=== PATIENT | female | born 1995 | race American Indian/Alaskan Native ===

== ENCOUNTER 2021-11-10 10:46 | Emergency (ER) | payer OTHER ==
--- NOTE | 2021-11-10 14:16 | Ultrasound Report ---
ULTRASOUND OBSTETRIC REASON FOR EXAM: pelvic pain TECHNIQUE: Transabdominal and transvaginal ultrasound was performed to evaluate a first trimester pre gnancy. COMPARISON: None available. FINDINGS: FINDINGS: There is a single intrauterine gestational sac with mean sac diameter measuring 10.5 mm. Mean sac alberto meter corresponds to an ultrasound age of 5 weeks and 6 days. Yolk sac is present. No pole is i dentified at this time. No evidence of perigestational hemorrhage. MATERNAL FINDINGS: 2 fibroids are present within the uterine fundus. Uterus demonstrates otherwise unremarkable sonograp hic appearance. Right ovary measures 2.7 x 2.1 x 2.6 cm. There is a 1.4 cm dominant follicle. No significant cyst or mass. Normal color Doppler flow. 1.3 cm simple appearing cystic structure noted adjacent to the left ovary. Left ovary measures 1.9 x 1.0 x 1.4 cm. Cul-de-sac: There is no free fluid. IMPRESSION: Intrauterine of uncertain viability: intrauterine gestational sac with yolk sac without det ectable pole at this time. In a hemodynamically stable patient, recommend follow-up with pelvic ultrasound in 7-10 days. Signer Name: Will Green MD Signed: 11/10/2021 2:11 PM Workstation Name: [email or web address]
[2021-11-10 14:19] LABS: Bilirubin,Urine NEG (Negative); Blood,Urine NEG (Negative); Color,Urine Yellow (Yellow); Protein,Urine <15 mg/dL mg/dL (Negative); Urobilinogen,Urine < 2.0 mg/dL (<2.0)
[2021-11-10 14:27] LABS: Bacteria,Urine 1+ /HPF (Negative); Mucus,Urine FEW /HPF
[2021-11-10 15:26] LABS: Basophils % (Auto) 0.2 % (0.0-1.8); Eosinophils % (Auto) 0.3 % (0.0-4.3); Hematocrit 37.4 % (30.3-42.9); Hemoglobin 12.4 gm/dl (10.1-14.3); Lymphocytes # (Auto) 2.5 K/mm3 (1.2-5.4); Lymphocytes % (Auto) 32.6 % (13.4-35.0); Mean Corpuscular HGB Conc 33 % (30-34); Mean Corpuscular Volume 94 fl (79-97); Monocytes # (Auto) 0.5 K/mm3 (0.0-0.8); Monocytes % (Auto) 6.5 % (0.0-7.3); Platelet Count 219 K/mm3 (140-440); Red Blood Count 3.98 M/mm3 (3.65-5.03); Red Cell Distribution Width 12.7 % (13.2-15.2)
[2021-11-10 15:44] LABS: Blood Urea Nitrogen 6 mg/dL (7-17); Calcium 9.4 mg/dL (8.4-10.2); Hemolysis Index 7
[2021-11-10 15:46] LABS: BUN/Creatinine Ratio 12
--- NOTE | 2021-11-10 16:08 | Emergency Department Report ---
ED HPI - General Chief complaint: Urogenital-Female Stated complaint: 5WKS /ABD PAIN Time Seen by Provider: 11/10/21 13:16 Source: patient Mode of arrival: Ambulatory Limitations: No Limitations - History of Present Illness Initial comments: This is a 26-year-old female nontoxic, well nourished in appearance, no acute signs of distress presents to the ED with c/o of intermittent pelvic cramping x several days. Patient denies any vaginal bleeding. Patient denies any upper abdominal pain. Patient denies any vaginal discharge or foul odor. Patient denies any nausea, vomiting, chest pain, shortness of breathe, fever, chills, headache, stiff neck, numbness, tingling. Patient denies any urinary symptoms. Patient denies any allergies or PMH. Location: pelvis Radiation: none Severity: mild Severity scale (0 -10): 3 Quality: cramping Consistency: intermittent Improves with: none Worsens with: none Associated symptoms: denies other symptoms. denies: nausea/vomiting, vaginal bleeding, vaginal discharge, abdominal pain, dysuria, headache, vision changes, malaise, dysparuenia, rash, seizure, shortness of breath, syncope, weakness Vaginal bleeding: none :: Yes Number of weeks : 5 ED Review of Systems ROS: Stated complaint: 5WKS /ABD PAIN Other details as noted in HPI Comment: All other systems reviewed and negative Constitutional: denies: chills, fever Eyes: denies: eye pain, eye discharge, vision change ENT: denies: ear pain, throat pain Respiratory: denies: cough, shortness of breath, wheezing Cardiovascular: denies: chest pain, palpitations Endocrine: no symptoms reported Gastrointestinal: denies: abdominal pain, nausea, diarrhea Genitourinary: denies: urgency, dysuria, discharge Musculoskeletal: denies: back pain, joint swelling, arthralgia Skin: denies: rash, lesions Neurological: denies: headache, weakness, paresthesias Psychiatric: denies: anxiety, depression Hematological/Lymphatic: denies: easy bleeding, easy bruising ED Past Medical Hx - Past Medical History Previous Medical History?: No - Surgical History Past Surgical History?: No - Social History Smoking Status: Never Smoker ED Physical Exam - General Limitations: No Limitations General appearance: alert, in no apparent distress - Head Head exam: Present: atraumatic, normocephalic - Eye Eye exam: Present: normal appearance - Neck Neck exam: Present: normal inspection, full ROM. Absent: lymphadenopathy - Respiratory Respiratory exam: Present: normal lung sounds bilaterally. Absent: respiratory distress, wheezes, rales, rhonchi, stridor, chest wall tenderness, accessory muscle use, decreased breath sounds, prolonged expiratory - Cardiovascular Cardiovascular Exam: Present: regular rate, normal rhythm, normal heart sounds. Absent: bradycardia, tachycardia, irregular rhythm, systolic murmur, diastolic murmur, rubs, gallop - GI/Abdominal GI/Abdominal exam: Present: soft, normal bowel sounds. Absent: distended, tenderness, guarding, rebound, rigid, diminished bowel sounds - Extremities Exam Extremities exam: Present: full ROM - Back Exam Back exam: Present: normal inspection, full ROM. Absent: tenderness, CVA tenderness (R), CVA tenderness (L), muscle spasm, paraspinal tenderness, vertebral tenderness, rash noted - Neurological Exam Neurological exam: Present: alert, oriented X3, normal gait - Psychiatric Psychiatric exam: Present: normal affect, normal mood - Skin Skin exam: Present: warm, dry, intact, normal color. Absent: rash ED Course Vital Signs 11/10/21 11/10/21 10:59 17:33 Temperature 99.4 F 99 F Pulse Rate 103 H 96 H Respiratory 14 18 Rate Blood Pressure 122/81 Blood Pressure 120/88 [Right] O2 Sat by Pulse 99 100 Oximetry - Reevaluation(s) Reevaluation #1: 11/10/21 16:08 Patient is speaking in full sentences with no signs of distress noted. ED Medical Decision Making - Lab Data Result diagrams: 11/10/21 13:29 11/10/21 13:29 Lab Results 11/10/21 11/10/21 11/10/21 Range/Units 13:29 13:29 13:29 WBC 7.6 (4.5-11.0) K/mm3 RBC 3.98 (3.65-5.03) M/mm3 Hgb 12.4 (10.1-14.3) gm/dl Hct 37.4 (30.3-42.9) % MCV 94 (79-97) fl MCH 31 (28-32) pg MCHC 33 (30-34) % RDW 12.7 L (13.2-15.2) % Plt Count 219 (140-440) K/mm3 Lymph % (Auto) 32.6 (13.4-35.0) % [place] % (Auto) 6.5 (0.0-7.3) % Eos % (Auto) 0.3 (0.0-4.3) % Baso % (Auto) 0.2 (0.0-1.8) % Lymph # (Auto) 2.5 (1.2-5.4) K/mm3 [place] # (Auto) 0.5 (0.0-0.8) K/mm3 Eos # (Auto) 0.0 (0.0-0.4) K/mm3 Baso # (Auto) 0.0 (0.0-0.1) K/mm3 Seg Neutrophils % 60.4 (40.0-70.0) % Seg Neutrophils # 4.6 (1.8-7.7) K/mm3 Sodium 136 L (137-145) mmol/L Potassium 3.8 (3.6-5.0) mmol/L Chloride 103.6 (98-107) mmol/L Carbon Dioxide 21 L (22-30) mmol/L Anion Gap 15 mmol/L BUN 6 L (7-17) mg/dL Creatinine 0.5 L (0.6-1.2) mg/dL Estimated GFR > 60 ml/min BUN/Creatinine Ratio 12 % Glucose 81 (65-100) mg/dL Calcium 9.4 (8.4-10.2) mg/dL HCG, Qual (Negative) HCG, Quant (0-4) mIU/mL Urine Color Yellow (Yellow) Urine Turbidity Clear (Clear) Urine pH 7.0 (5.0-7.0) Ur Specific [place] 1.014 (1.003-1.030) Urine Protein <15 mg/dl (Negative) mg/dL Urine Glucose (UA) Neg (Negative) mg/dL Urine Ketones 80 (Negative) mg/dL Urine Blood Neg (Negative) Urine Nitrite Neg (Negative) Urine Bilirubin Neg (Negative) Urine Urobilinogen < 2.0 (<2.0) mg/dL Ur Leukocyte Esterase Tr (Negative) Urine WBC (Auto) 5.0 (0.0-6.0) /HPF Urine RBC (Auto) 6.0 (0.0-6.0) /HPF U Epithel Cells (Auto) 5.0 (0-13.0) /HPF Urine Bacteria (Auto) 1+ (Negative) /HPF Urine Mucus Few /HPF 11/10/21 11/10/21 Range/Units 13:29 13:29 WBC (4.5-11.0) K/mm3 RBC (3.65-5.03) M/mm3 Hgb (10.1-14.3) gm/dl Hct (30.3-42.9) % MCV (79-97) fl MCH (28-32) pg MCHC (30-34) % RDW (13.2-15.2) % Plt Count (140-440) K/mm3 Lymph % (Auto) (13.4-35.0) % [place] % (Auto) (0.0-7.3) % Eos % (Auto) (0.0-4.3) % Baso % (Auto) (0.0-1.8) % Lymph # (Auto) (1.2-5.4) K/mm3 [place] # (Auto) (0.0-0.8) K/mm3 Eos # (Auto) (0.0-0.4) K/mm3 Baso # (Auto) (0.0-0.1) K/mm3 Seg Neutrophils % (40.0-70.0) % Seg Neutrophils # (1.8-7.7) K/mm3 Sodium (137-145) mmol/L Potassium (3.6-5.0) mmol/L Chloride (98-107) mmol/L Carbon Dioxide (22-30) mmol/L Anion Gap mmol/L BUN (7-17) mg/dL Creatinine (0.6-1.2) mg/dL Estimated GFR ml/min BUN/Creatinine Ratio % Glucose (65-100) mg/dL Calcium (8.4-10.2) mg/dL HCG, Qual Positive (Negative) HCG, Quant 9704 H (0-4) mIU/mL Urine Color (Yellow) Urine Turbidity (Clear) Urine pH (5.0-7.0) Ur Specific [place] (1.003-1.030) Urine Protein (Negative) mg/dL Urine Glucose (UA) (Negative) mg/dL Urine Ketones (Negative) mg/dL Urine Blood (Negative) Urine Nitrite (Negative) Urine Bilirubin (Negative) Urine Urobilinogen (<2.0) mg/dL Ur Leukocyte Esterase (Negative) Urine WBC (Auto) (0.0-6.0) /HPF Urine RBC (Auto) (0.0-6.0) /HPF U Epithel Cells (Auto) (0-13.0) /HPF Urine Bacteria (Auto) (Negative) /HPF Urine Mucus /HPF - Radiology Data [facility] [address] [place] [address] Ultrasound Report Signed Patient: JIM COOPER MR#: [id number] : 1995 Acct:[id number] Age/Sex: 26 / F ADM Date: 11/10/21 Loc: ED Attending Dr: Ordering Physician: CHITO TONEY NP Date of Service: 11/10/21 Procedure(s): US OB <= 14 weeks fetus Accession Number(s): [id number] cc: CHITO TONEY NP ULTRASOUND OBSTETRIC REASON FOR EXAM: pelvic pain TECHNIQUE: Transabdominal and transvaginal ultrasound was performed to evaluate a first trimester . COMPARISON: None available. FINDINGS: FINDINGS: There is a single intrauterine gestational sac with mean sac diameter measuring 10.5 mm. Mean sac diameter corresponds to an ultrasound age of 5 weeks and 6 days. Yolk sac is present. No pole is identified at this time. No evidence of perigestational hemorrhage. MATERNAL FINDINGS: 2 fibroids are present within the uterine fundus. Uterus demonstrates otherwise unremarkable sonographic appearance. Right ovary measures 2.7 x 2.1 x 2.6 cm. There is a 1.4 cm dominant follicle. No significant cyst or mass. Normal color Doppler flow. 1.3 cm simple appearing cystic structure noted adjacent to the left ovary. Left ovary measures 1.9 x 1.0 x 1.4 cm. Cul-de-sac: There is no free fluid. IMPRESSION: Intrauterine of uncertain viability: intrauterine gestational sac with yolk sac without detectable pole at this time. In a hemodynamically stable patient, recommend follow-up with pelvic ultrasound in 7-10 days. Signer Name: Tanya Ngo MD Signed: 11/10/2021 2:11 PM Workstation Name: [id number] Transcribed By: YAKOV Dictated By: TANYA NGO MD Electronically Authenticated By: TANYA NGO MD Signed Date/Time: 11/10/211410 DD/ 05 TD/TT: [facility] [address] [place] [address] Ultrasound Report Signed Patient: JIM COOPER MR#: [id number] : 1995 Acct:[id number] Age/Sex: 26 / F ADM Date: 11/10/21 Loc: ED Attending Dr: Ordering Physician: CHITO TONEY NP Date of Service: 11/10/21 Procedure(s): US OB transvaginal Accession Number(s): [id number] cc: CHITO TONEY NP ULTRASOUND OBSTETRIC REASON FOR EXAM: pelvic pain TECHNIQUE: Transabdominal and transvaginal ultrasound was performed to evaluate a first trimester . COMPARISON: None available. FINDINGS: FINDINGS: There is a single intrauterine gestational sac with mean sac diameter measuring 10.5 mm. Mean sac diameter corresponds to an ultrasound age of 5 weeks and 6 days. Yolk sac is present. No pole is identified at this time. No evidence of perigestational hemorrhage. MATERNAL FINDINGS: 2 fibroids are present within the uterine fundus. Uterus demonstrates otherwise unremarkable sonographic appearance. Right ovary measures 2.7 x 2.1 x 2.6 cm. There is a 1.4 cm dominant follicle. No significant cyst or mass. Normal color Doppler flow. 1.3 cm simple appearing cystic structure noted adjacent to the left ovary. Left ovary measures 1.9 x 1.0 x 1.4 cm. Cul-de-sac: There is no free fluid. IMPRESSION: Intrauterine of uncertain viability: intrauterine gestational sac with yolk sac without detectable pole at this time. In a hemodynamically stable patient, recommend follow-up with pelvic ultrasound in 7-10 days. Signer Name: Tanya Ngo MD Signed: 11/10/2021 2:11 PM Workstation Name: [id number] Transcribed By: YAKOV Dictated By: TANYA NGO MD Electronically Authenticated By: TANYA NGO MD Signed Date/Time: 11/10/211410 DD/ 05 TD/TT: - Medical Decision Making This is a 26-year-old female that presents with pelvic pain during . Patient is stable and was examined by me. There is no abdominal tenderness. Negative signs of symptoms of appendicitis. Labs obtained. UA obtained. OB US obtained and dictated by the radiologist. Patient is notified of the report with no questions noted by the patient. Vital signs are stable prior to discharge. Patient was also instructed to Follow-up with a OBGYN doctor in 3-5 days or if symptoms worsen and continue return to emergency room as soon as possible. At time of discharge, the patient does not seem toxic or ill in appearance. No acute signs of distress noted. Patient agrees to discharge treatment plan of care. No further questions noted by the patient. Critical care attestation.: If time is entered above; I have spent that time in minutes in the direct care of this critically ill patient, excluding procedure time. ED Disposition Clinical Impression: Pelvic pain during Disposition: 01 HOME / SELF CARE / HOMELESS Is pt being admited?: No Does the pt Need Aspirin: No Condition: Stable Instructions: Care Additional Instructions: Follow-up with a OBGYN doctor in 3-5 days or if symptoms worsen and continue return to emergency room as soon as possible. Referrals: [facility] [Referring] - 3-5 Days [facility] [Provider Group] - 3-5 Days [facility] [Provider Group] - 3-5 Days Time of Disposition: 16:12
[2021-11-10 17:35] VITALS: BP 120/88
== END 2021-11-10 18:26 | disposition home or self-care (01) ==
LOC: EDBD → ED 10:46
DX: O26.891 Other specified pregnancy related conditions, first trimester (principal); R10.2 Pelvic and perineal pain; Z3A.01 Less than 8 weeks gestation of pregnancy
CPT/HCPCS: 36415; 76801; 76817; 80048; 81001; 84702; 84703; 85025; 99284